=== PATIENT | male | born 2005 | race Caucasian/White ===

== ENCOUNTER 2024-10-11 09:55 | Outpatient (OUT) | payer OTHER, SELFPAY ==
[2024-10-11 10:11] LABS: Basophils Percent Auto 0.1 % (0.2-2.0); Eosinophils Absolute Auto 0.1 10^3/uL (0.0-0.7); Eosinophils Percent Auto 0.6 % (0.9-7.0); Hematocrit 46.4 % (42.0-54.0); Hemoglobin 16.1 g/dL (14.0-18.0); Immature Granulocytes Abs Auto 0.18 10^3/uL (0.00-0.03); Immature Granulocytes Pct Auto 0.9 % (0.0-0.5); Lymphocytes Percent Auto 9.3 % (20.5-60.0); Mean Corpuscular HGB Conc 34.7 g/dL (29.9-35.2); Mean Corpuscular Hemoglobin 31.9 pg (25.9-34.0); Mean Corpuscular Volume 91.9 fL (80.0-94.0); Mean Platelet Volume 9.1 fL (9.5-13.5); Monocytes Absolute Auto 0.8 10^3/uL (0.3-0.8); Monocytes Percent Auto 3.7 % (1.7-12.0); Neutrophils Absolute Auto 18.1 10^3/uL (1.4-6.5); Neutrophils Percent Auto 85.4 % (43.0-75.0); Platelet Count 382 10^3/uL (150-450); Red Blood Count 5.05 10^6/uL (4.70-6.10); Red Cell Distribution Width 11.9 % (11.0-15.0); White Blood Count 21.2 10^3/uL (4.0-11.0)
[2024-10-11 10:38] LABS: Alanine Aminotransferase 32 U/L (16-63); Albumin Globulin Ratio 1.5; Albumin Level 4.5 g/dL (3.4-5.0); Alkaline Phosphatase 63 U/L (46-116); Anion Gap 13.5; Aspartate Amino Transferase 17 U/L (15-37); BUN Creatinine Ratio 14.6; Bilirubin Direct 0.3 mg/dL (0.0-0.2); Bilirubin Total 1.6 mg/dL (0.2-1.0); Calcium 9.6 mg/dL (8.5-10.1); Carbon Dioxide 30.7 mmol/L (21.0-32.0); Chloride 100 mmol/L (98-107); Chol HDL Ratio 2.5; Cholesterol 144 mg/dL (109-189); Estimated GFR (African America >60 (>=60 mL/min/1.73m^2); Estimated GFR (Non-African Ame >60 (>=60 mL/min/1.73m^2); Globulin 3.1 g/dL; Glucose 92 mg/dL (74-106); HDL Cholesterol 58 mg/dL (23-55); Potassium 4.2 mmol/L (3.5-5.1); Sodium 140 mmol/L (136-145); Total Protein 7.6 g/dL (6.4-8.2); Triglycerides 44 mg/dL (50-183); VLDL CHOLESTEROL 8.8 mg/dL
[2024-10-12 06:12] LABS: HBsAg Screen Negative (Negative); HCV Antibody Non Reactive (Non Reactive)
[2024-10-13 05:08] LABS: QuantiFERON-TB Gold Plus Negative (Negative)
== END 2024-10-11 09:56 | disposition home or self-care (01) ==
LOC: LAB 09:55
PROVIDERS: Visit Provider Dermatology
DX: L20.89 Other atopic dermatitis (principal)
CPT/HCPCS: 36415; 80048; 80061; 80076; 82785; 85025; 86480; 86803; 87340